=== PATIENT | female | born 1945 | race Caucasian/White ===

== ENCOUNTER 2024-06-12 13:57 | Emergency (ER) | payer SELFPAY ==
[2024-06-12] VITALS (10 sets, daily range): BP systolic 125–151; BP diastolic 81–105; PULSE 52–72; BMI 28.4
[2024-06-12 14:18] LABS: % Basophils 0.4 % (0-2); % Eosinophils 0.4 % (0-6); % Immature Granulocytes 0.6 % (0-0.5); % Lymphocytes 19.6 % (20.5-51.1); Absolute Immature Granulocytes 0.1 10^3/uL (0-0.05); Absolute Lymphocytes 1.5 10^3/uL (1.2-3.4); Absolute Monocytes 0.7 10^3/uL (0.1-0.6); Absolute Neutrophils 5.4 10^3/uL (1.4-6.5); Hematocrit 41.1 % (37.0-47.0); Mean Corp Hgb Conc. 34.1 g/dL (33.0-37.0); Mean Corpuscular Volume 93.8 fL (81.0-99.0); Mean Platelet Volume 9.7 fL (7.4-10.4); Nucleated Red Blood Cells % 0 %; Platelet Count 189 10^3/uL (130-400); Red Blood Cell Count 4.38 10^6/uL (4.20-5.40); Red Cell Dist. Width 14.5 % (11.5-14.5); White Blood Cell Count 7.8 10^3/uL (4.8-10.8)
[2024-06-12 14:47] LABS: Troponin I < 0.012 ng/ml
[2024-06-12 14:49] LABS: ALT (SGPT) 44 U/L (0-35); AST (SGOT) 32 U/L (14-36); Albumin 4.3 g/dl (3.5-5.0); Alkaline Phosphatase 87 U/L (38-126); Blood Urea Nitrogen 32 mg/dl (7-17); Calcium 9.6 mg/dl (8.4-10.2); Carbon Dioxide 28 mmol/L (22-30); Chloride 101 mmol/L (98-107); Estimated Creatinine Clearance 52 ml/min; Glucose 229 mg/dl (70-99); Potassium 4.3 mmol/L (3.5-5.1); Sodium 140 mmol/L (135-145); Total Bilirubin 0.7 mg/dl (0.2-1.3); Total Protein 6.6 g/dl (6.3-8.2); eGFR > 60.00
--- NOTE | 2024-06-12 15:20 | ED.GENMED ---
History of Present Illness
<Tiarra Ortez PA-C - Last Filed: 06/13/24 17:49>
General
Chief Complaint: Chest Pain
Source: patient
Exam Limitations: dementia
Time Seen by Provider: 06/12/24 14:27
Nursing documentation reviewed up to this point in time: agreed with
History of Present Illness
History of Present Illness:
Patient is a 78-year-old female with history of CHF, hypertension, hyperlipidemia, diabetes, Alzheimer's presenting to the emergency department following episode of chest pain this morning. Patient is a poor historian due to Alzheimer's. She does
state that this morning while she was walking around her house she had an episode of left-sided chest pain lasting a few minutes (although she does note memory regarding this episode is vague). Her family was concerned that she was having heart
attack prompting her visit to the emergency department.
At this time�patient denies any chest pain, shortness of breath. She does report mild lightheadedness. Patient denies any back pain, headache, abdominal lower extremity weakness or numbness/tingling.
Did speak to patients son who reports no history of CAD.
Review of Systems
<Tiarra Ortez PA-C - Last Filed: 06/13/24 17:49>
Review of Systems
Allergies reviewed?: Yes
All Other Systems: ROS reviewed and negative except as documented in HPI and ROS
Phy Exam
<Tiarra Ortez PA-C - Last Filed: 06/13/24 17:49>
Physical Exam
Physical Exam:
Vitals: Mildly hypertensive. Otherwise vital signs stable. Afebrile
General: Patient is well appearing, no acute distress
Skin: Warm and dry, no rashes or lesions
Head: Normocephalic, atraumatic
Eyes: Sclera nonicteric. EOMs intact. No nystagmus.
Throat: Protecting airway
Neck: Normal ROM, no cervical spine tenderness, no meningismus. No JVD
Cardiac: Regular rate and rhythm, no murmurs. No reproducible anterior chest wall tenderness.
Pulm: Normal respiratory effort, no wheezes, rales, rhonchi heard on exam.
Abdomen: Abdomen soft. No abdominal tenderness.
Extremities: No evidence of cyanosis or edema. Palpable and equal distal pulses bilateral upper and lower extremities
Neuro: AAOx3. No focal neurologic deficits.
Psychiatric: Normal affect.
Scores
<Tiarra Ortez PA-C - Last Filed: 06/13/24 17:49>
Heart Score for Chest Pain Patients
STEMI patient?: No
History: Slightly or Non-Suspicious
ECG: Nonspecific Repolarization
Age: >/= 65 years
Risk Factors: >/= 3 Risk Factors or History of CAD
Troponin: </= Normal Limit
Heart Score for Chest Pain Patients: 5
Heart Score Risk: 20.3% MACE over next 6 weeks
Course
<Tiarra Ortez PA-C - Last Filed: 06/13/24 17:49>
Orders/Labs/Results
Orders:
Orders
06/12/24 14:03
Electrocardiogram (*1) Urgent
Reason for Study: Chest Pain
EKG- Treatment ONCE
CXR2 [CR Chest - 2 Views ] Urgent
Comment:
Reason For Exam: chest pain
06/12/24 14:09
Complete Blood Count/With Diff Urgent
Comprehensive Metabolic Panel Urgent
Troponin I Urgent
06/12/24 15:20
Orthostatic VS- Treatment ONCE
pacemaker [Interrogate Pacemaker- Treatment] ONCE
06/12/24 17:10
Electrocardiogram (*1) Urgent
Reason for Study: Chest Pain
EKG- Treatment ONCE
06/12/24 17:11
Troponin I Urgent
Abnormal Lab Results
06/12/24
14:09
MCH 32.0 H pg
(27.0-31.0)
Abs Immat Gran (auto) 0.1 H 10^3/uL
(0-0.05)
Absolute Monos (auto) 0.7 H 10^3/uL
(0.1-0.6)
Immature Gran % 0.6 H %
(0-0.5)
Lymphocytes % 19.6 L %
(20.5-51.1)
BUN 32 H mg/dl
(7-17)
Glucose 229 H mg/dl
(70-99)
ALT 44 H U/L
(0-35)
06/12/24 14:09
06/12/24 14:09
Vital Signs
Initial and Last Documented VS:
Initial Vital Signs
Temp Pulse Resp BP Pulse Ox
98.7 F 63 18 139/84 98
06/12/24 14:01 06/12/24 14:01 06/12/24 14:01 06/12/24 14:01 06/12/24 14:01
Last Documented Vital Signs
Temp Pulse Resp BP Pulse Ox
98.7 F 66 15 131/81 99
06/12/24 14:01 06/12/24 18:30 06/12/24 18:30 06/12/24 18:00 06/12/24 16:30
<Romain Maravilla MD - Last Filed: 06/12/24 16:08>
Orders/Labs/Results
Orders:
Orders
06/12/24 14:03
Electrocardiogram (*1) Urgent
Reason for Study: Chest Pain
EKG- Treatment ONCE
CXR2 [CR Chest - 2 Views ] Urgent
Comment:
Reason For Exam: chest pain
06/12/24 14:09
Complete Blood Count/With Diff Urgent
Comprehensive Metabolic Panel Urgent
Troponin I Urgent
06/12/24 15:20
Orthostatic VS- Treatment ONCE
pacemaker [Interrogate Pacemaker- Treatment] ONCE
06/12/24 17:10
Electrocardiogram (*1) Urgent
Reason for Study: Chest Pain
EKG- Treatment ONCE
06/12/24 17:11
Troponin I Urgent
Abnormal Lab Results
06/12/24
14:09
MCH 32.0 H pg
(27.0-31.0)
Abs Immat Gran (auto) 0.1 H 10^3/uL
(0-0.05)
Absolute Monos (auto) 0.7 H 10^3/uL
(0.1-0.6)
Immature Gran % 0.6 H %
(0-0.5)
Lymphocytes % 19.6 L %
(20.5-51.1)
BUN 32 H mg/dl
(7-17)
Glucose 229 H mg/dl
(70-99)
ALT 44 H U/L
(0-35)
06/12/24 14:09
06/12/24 14:09
Vital Signs
Initial and Last Documented VS:
Initial Vital Signs
Temp Pulse Resp BP Pulse Ox
98.7 F 63 18 139/84 98
06/12/24 14:01 06/12/24 14:01 06/12/24 14:01 06/12/24 14:01 06/12/24 14:01
Last Documented Vital Signs
Temp Pulse Resp BP Pulse Ox
98.7 F 66 15 131/81 99
06/12/24 14:01 06/12/24 18:30 06/12/24 18:30 06/12/24 18:00 06/12/24 16:30
<Tiarra Ortez PA-C - Last Filed: 06/13/24 17:49>
MDM/Problems Addressed
Differential Diagnosis Includes:
Not limited to: Muscular strain, pericarditis, myocarditis, GERD, pneumonia, pneumothorax, ACS
MDM/Problems Addressed:
78-year-old female with history as documented presenting following episode of chest pain this morning. Patient asymptomatic at this time. History somewhat limited due to patient's Alzheimer's. Vital stable. Exam as above. Patient
well-appearing, no apparent distress. Mild reproducible left-sided chest wall tenderness. Palpable and equal distal pulses. Differential somewhat broad�although given unclear history and risk factors will obtain labs, troponin. Will check chest
x-ray. Initial EKG with a paced rhythm. Will interrogate pacemaker. Differentials include muscular strain, GERD, pneumonia, ACS, etc.
Update: Labs reviewed. No clinically significant abnormalities. Initial troponin undetectable. Chest x-ray report reviewed�tortuosity of descending thoracic already noted, no evidence of mediastinum widening. Patient remains asymptomatic
Chronic conditions affecting care:
CHF, hypertension, hyperlipidemia, Alzheimer's, diabetes
Acute Exacerbation and/or Progression of Chronic Illness:
Acute hyperglycemia, acutely hypertensive
<Tiarra Ortez PA-C - Last Filed: 06/13/24 17:49>
*Radiology
Radiology exam reviewed: preliminary read by ED provider and radiology read reviewed
*Pulse Oximetry
Patient hypoxic: no
*EKG
Interpreted by ED Provider?: Yes
EKG Intrepretation Date: 06/12/24
Interpretation: abnormal
Comparison EKG: no comparison EKG present
Heart Rate: 60
Rate: normal
Rhythm: other
*Area Representative Interpretation
Rate: normal
Interpretation: normal
Heart Rate: 62
*Critical Care Note
Total Time (30-74mins, 75-104mins- exclusive of procedures): Not Applicable
<Tiarra Ortez PA-C - Last Filed: 06/13/24 17:49>
Update Note
Update Note:
Update: Repeat troponin negative. Patient remains asymptomatic. Low suspicion for ACS or acute emergent cardiac process. Did obtain pacemaker interrogation report which shows no evidence of arrhythmia. Given patients age and risk factors - will
provide cardiology referral for close outpatient follow-up. Return precautions discussed. Did call and speak with patients son to review findings. Patient and patients son comfortable with plan.
ED Attending Note
<Tiarra Ortez PA-C - Last Filed: 06/13/24 17:49>
-
Portions of this chart may have been created with voice recognition software.� Occasional wrong word or��sound alike� substitutions may have occurred due to the inherent limitations of voice recognition software.
<Romain Maravilla MD - Last Filed: 06/12/24 16:08>
ED Attending Note
Patient seen and examined by attending physician: Yes
I performed the substantive portion of visit, reviewed & personally made and approve the management plan that is documented in note by myself or MARQUIS.: Yes
ED Attending Note:
Patient is a 78-year-old with history of dementia, hypertension, hyperlipidemia, CHF, pacemaker presenting to the emergency department chest pain. Patient is extremely poor historian given her dementia and is unable to recall exactly what happened.
She states that she had chest pain this morning. She does state that she was walking around her house when it was a pressure-like sensation. She is unsure how long it lasted or what time it occurred. She does state that sometimes she gets pain
when she is walking. No shortness of breath nausea vomiting. She does believe she seen a precision machining instructor but does not remember when. PA did obtain additional history from son who denies any coronary artery disease or stents. Currently patient
denies any complaints.
GENERAL: in no acute distress
HEENT: normocephalic, extraocular movements intact, moist oral mucosa
NECK: normal inspection
RESPIRATORY: no respiratory distress, clear to auscultation bilaterally
CARDIOVASCULAR: regular rate and rhythm, reproducible left-sided chest wall tenderness
ABDOMEN/: soft, non-distended, non-tender to palpation, no rebound or guarding
EXTREMITIES: non-tender, no edema/swelling
NEUROLOGIC: awake and alert, moves all extremities
SKIN: warm
Patient is a 78-year-old woman with history of dementia, CHF, hypertension, hyperlipidemia presenting to the emergency department with chest pain. Vitals unremarkable and exam does show mild left-sided chest wall tenderness. Unclear history but
patient does have risk as she does states she occasionally gets exertional chest pain. Will obtain blood work including troponin as well as a delta troponin. EKG does show paced rhythm. Will interrogate pacemaker. Chest x-ray per my
interpretation does show tortuous aorta but no signs of widened mediastinum. If delta troponin is unremarkable anticipate discharge with cardiology hotline follow-up given patient's age and risk factors.
Discharge Plan
Departure
Patient Disposition: Home (Routine Discharge)
Date of Disposition: 06/12/24
Time of Disposition: 18:10
Patient with high blood pressure during this ER visit?: Yes
Condition: Good
Covid-19: Not Applicable
Discharge Problem:
Chest pain
Instructions: Chest pain, Chest Pain DCA Follow Up, BLOOD PRESSURE
Referrals:
Ilsa Hernández MD [Family Provider] -
Lele Stroud DO [Active] - Follow up in 1 week
Activity Restrictions/Additional Instructions:
RETURN TO THE EMERGENCY DEPARTMENT WITH ANY CHEST PAIN, SHORTNESS OF BREATH, DIZZINESS/LIGHTHEADEDNESS, SEVERE BACK/ABDOMINAL PAIN, WORSENING IN CURRENT SYMPTOMS, OR ANY OTHER CONCERNS
-It is important to stay well-hydrated. You should take it easy over the next few days until you are followed up by cardiology.
-Follow-up with cardiology for further evaluation/management. The information has been provided for you above.
Monitor your symptoms closely and return to the emergency department with any acute worsening/new symptoms
Interventions
Interventions:
*Risk Screen - Suicide Last Done: 06/12/24 14:01
*General Assessment Last Done: 06/12/24 14:01
*Neglect/Abuse Screening Last Done: 06/12/24 14:01
ED- Fall Risk Assessment Last Done: 06/12/24 14:01
*ED COVID-19 Vaccine History Last Done: 06/12/24 14:01
*Nursing Disposition Last Done: 06/12/24 18:48
ED- Cardiac Assessment Last Done: 06/12/24 14:01
Discharge Date and Time
Discharge Date/Time: 06/12/24 18:49
Print Language: CYMRO
[2024-06-12 17:42] LABS: Troponin I < 0.012 ng/ml
== END 2024-06-12 18:49 | disposition home or self-care (01) ==
LOC: EMR 13:57
PROVIDERS: Emergency Medicine; Physician Assistant; EMERGENCY PHYSICIAN Student in an Organized Health Care Education/Training Program; FAMILY PHYSICIAN Internal Medicine Geriatric Medicine
DX: R07.89 Other chest pain (principal); R42 Dizziness and giddiness; I11.0 Hypertensive heart disease with heart failure; I50.9 Heart failure, unspecified; E78.5 Hyperlipidemia, unspecified; E11.9 Type 2 diabetes mellitus without complications; F02.80 Dementia in other diseases classified elsewhere, unspecified severity, without behavioral disturbance, psychotic disturbance, mood disturbance, and anxiety; G30.9 Alzheimer's disease, unspecified; Z95.0 Presence of cardiac pacemaker; Z79.84 Long term (current) use of oral hypoglycemic drugs; Z88.2 Allergy status to sulfonamides
CPT/HCPCS: 99285; 93288; 71046; 80053; 84484; 85025; 93005

== ENCOUNTER 2024-11-11 12:06 | Emergency (ER) | payer MEDICARE, OTHER, SELFPAY ==
[2024-11-11 12:09] VITALS: BP 116/61; BMI 27.6
[2024-11-11 12:12] VITALS: BP 116/61
[2024-11-11 12:31] LABS: % Basophils 0.4 % (0-2); % Eosinophils 0.3 % (0-6); % Immature Granulocytes 0.9 % (0-0.5); % Lymphocytes 13.4 % (20.5-51.1); % Monocytes 10.2 % (1.7-9.3); % Neutrophils 74.8 % (42.2-75.2); Absolute Basophils 0.1 10^3/uL (0-0.2); Absolute Immature Granulocytes 0.1 10^3/uL (0-0.05); Absolute Lymphocytes 1.6 10^3/uL (1.2-3.4); Absolute Monocytes 1.2 10^3/uL (0.1-0.6); Absolute Neutrophils 8.6 10^3/uL (1.4-6.5); Hematocrit 41.7 % (37.0-47.0); Mean Corpuscular Hgb 32.8 pg (27.0-31.0); Mean Corpuscular Volume 91.2 fL (81.0-99.0); Mean Platelet Volume 10.1 fL (7.4-10.4); Nucleated Red Blood Cells % 0 %; Platelet Count 169 10^3/uL (130-400); Red Blood Cell Count 4.57 10^6/uL (4.20-5.40); Red Cell Dist. Width 13.6 % (11.5-14.5); White Blood Cell Count 11.5 10^3/uL (4.8-10.8)
[2024-11-11 12:56] LABS: Troponin I 0.019 ng/ml
[2024-11-11 13:00] VITALS: BP 97/71
[2024-11-11 13:14] LABS: Blood Urea Nitrogen 30 mg/dl (7-17); Calcium 9.4 mg/dl (8.4-10.2); Carbon Dioxide 25 mmol/L (22-30); Chloride 102 mmol/L (98-107); Estimated Creatinine Clearance 52 ml/min; Glucose 276 mg/dl (70-99); Sodium 134 mmol/L (135-145); eGFR > 60.00
--- NOTE | 2024-11-11 14:15 | ED.GENMED ---
History of Present Illness
General
Chief Complaint: Chest Pain
Source: patient, family and ambulance crew
Time Seen by Provider: 11/11/24 13:43
History of Present Illness
History of Present Illness:
79-year-old female with past medical history of Alzheimer's dementia, atrial fibrillation status post pacemaker placement, CHF, hypertension, hyperlipidemia, [id number] diabetes presenting to the emergency department for evaluation of
reported chest discomfort earlier today, patient noting at time of my exam her pain is resolved. Due to her dementia patient is unable to provide much further history about when her chest pain started, what she was doing at the time of the onset of
pain, descriptors about what the pain felt like or location. Son who entered the room during my exam states patient has a [employer] pacemaker, unsure as to who the patient's learning and development assistant is. Patient has been otherwise in her usual state of health
prior to today's symptoms starting. No reported fevers or recent illnesses. Patient currently denying any abdominal pain, chest pain, shortness of breath, palpitations, lower extremity pain or edema. Based off record review patient was seen here
in this emergency department for similar a few months ago with an unremarkable workup.
Past History
Past History
ED Past Medical History: Arrthythmia, CHF, HTN, Hypercholesterolemia, NIDDM and Renal failure
ED Past Surgical History: Cardiac, Cholecystectomy and Other
Social History
Tobacco: Non-smoker
Alcohol: None
Drug: None
Personal:
Living: assisted living
Review of Systems
Review of Systems
All Other Systems: ROS reviewed and negative except as documented in HPI and ROS
Phy Exam
Physical Exam
Physical Exam:
GENERAL: Alert , in no apparent distress
EYE: clear conjunctiva b/l
HEAD: NCAT
ENT: mmm.
CARDIAC: Regular rate and rhythm, systolic murmur left sternal border.
LUNGS: Clear breath sounds bilaterally, no acute respiratory distress, no wheezes/rales/rhonchi
ABDOMEN: Soft, without focal tenderness, no r/g, no cvat
NEUROLOGICAL: Alert and oriented
SKIN: Warm and dry, skin intact.
MUSCULOSKELETAL: well perfused. Trace ankle edema, nonpitting
PSYCH: Normal and appropriate interaction.
Scores
Heart Failure Risk
Heart Failure Risk Score: Not Applicable
Heart Score for Chest Pain Patients
STEMI patient?: No
History: Moderately Suspicious
ECG: Normal
Age: >/= 65 years
Risk Factors: 1 or 2 Risk Factors
Troponin: </= Normal Limit
Heart Score for Chest Pain Patients: 4
Heart Score Risk: 20.3% MACE over next 6 weeks
Withdrawal Assessment of Alcohol
Withdrawal Assessment Completed?: Not applicable
Course
Orders/Labs/Results
Orders:
Orders
11/11/24 12:09
Electrocardiogram (*1) Urgent
Reason for Study: Chest Pain
EKG- Treatment ONCE
11/11/24 12:24
Basic Metabolic Panel Urgent
Complete Blood Count/With Diff Urgent
Troponin I Urgent
11/11/24 13:43
Interrogate Pacemaker- Treatment ONCE
11/11/24 13:52
CR Chest - 2 Views Urgent
Comment:
Reason For Exam: chest pain
11/11/24 16:05
Electrocardiogram (*1) Urgent
Reason for Study: Chest Pain
EKG- Treatment ONCE
11/11/24 16:48
Troponin I Urgent
11/11/24 17:29
Acetaminophen [Tylenol] 1,000 mg PO NOW STA
Abnormal Lab Results
11/11/24
12:24
WBC 11.5 H 10^3/uL
(4.8-10.8)
MCH 32.8 H pg
(27.0-31.0)
Abs Immat Gran (auto) 0.1 H 10^3/uL
(0-0.05)
Absolute Neuts (auto) 8.6 H 10^3/uL
(1.4-6.5)
Absolute Monos (auto) 1.2 H 10^3/uL
(0.1-0.6)
Immature Gran % 0.9 H %
(0-0.5)
Lymphocytes % 13.4 L %
(20.5-51.1)
Monocytes % 10.2 H %
(1.7-9.3)
Sodium 134 L mmol/L
(135-145)
BUN 30 H mg/dl
(7-17)
Glucose 276 H mg/dl
(70-99)
11/11/24 12:24
11/11/24 12:24
Vital Signs
Initial and Last Documented VS:
Initial Vital Signs
Temp Pulse Resp BP Pulse Ox
99.0 F 64 18 116/61 93
11/11/24 12:09 11/11/24 12:09 11/11/24 12:09 11/11/24 12:09 11/11/24 12:09
Last Documented Vital Signs
Temp Pulse Resp BP Pulse Ox
99.0 F 84 18 139/86 97
11/11/24 12:09 11/11/24 17:16 11/11/24 17:16 11/11/24 17:00 11/11/24 17:16
Mon[place] Mason consulted with Physician
[place] Mason consulted with physician?: Yes
Name of Physician Consulted: Steve
MDM/Problems Addressed
Differential Diagnosis Includes:
Arrhythmia, ACS, PE, pneumothorax, pleurisy, GI upset, muscular etiology
MDM/Problems Addressed:
79-year-old female presenting to the ER for evaluation of transient chest pain, history very limited. Currently chest pain-free. Worked up here few months ago for the same without any emergent pathologies found. Triage vital signs noted, at time
of my exam patient's pulse ox continuously around 97% on room air and patient is in no acute perri distress. Labs initiated with patient having a nonnegative troponin but within normal limits. Will repeat a troponin. Will interrogate pacemaker.
Disposition pending.
Chronic conditions affecting care: Arrhythmia and Other (CHF)
*Radiology
Radiology exam reviewed: radiology read reviewed
*Pulse Oximetry
Patient hypoxic: no
*EKG
Heart Rate: 89
Rate: normal
Rhythm: PVC's and av sequential
*Industrial Maintenance Instructor Interpretation
Rate: normal
Rhythm: av sequential
*Critical Care Note
Total Time (30-74mins, 75-104mins- exclusive of procedures): Not Applicable
Data Reviewed
Review of Other/Old Records Reveals: Labs and Records
Patient Management
Discussion with other providers: Merchandise Carrier
Escalation/DeEscalation of care consider admission/obs:
Patient's pacemaker interrogation did show 1 episode of nonsustained ventricular tachycardia that lasted approximately 1 second around 10:30 AM and some episodes of atrial tachycardia as well. She follows with learning and development assistant Dr. Sh[facility] son and saw all this learning and development assistant earlier in the week which was reportedly an uneventful visit. I contacted the cardiology group and spoke to Dr. Cortez and reviewed patient's workup and plan for repeat troponin as well as
the pacemaker interrogation report. We will increase patient's metoprolol from 25 mg once daily to 25 mg twice daily. Awaiting repeat troponin and as long as this remains within normal limits plan will be to disposition patient back home and
outpatient follow-up with them in the next 1 to 2 weeks. Patient's son who is currently in the ER with the patient is okay and agreeable with this treatment plan.
Patient's repeat troponin is down to 0.018. She remains chest pain-free. She did note some jaw discomfort and is requesting some Tylenol. Given her 2 negative troponins combined with no EKG changes I do not suspect patient needs admission for
further cardiac workup and at this time is safe for discharge home with increased metoprolol dosing and outpatient follow-up with her learning and development assistant. Patient's son feels comfortable transporting the patient back home to [place]. Aware of
return precautions to the ER.
ED Attending Note
-
Portions of this chart may have been created with voice recognition software.� Occasional wrong word or��sound alike� substitutions may have occurred due to the inherent limitations of voice recognition software.
Discharge Plan
Departure
Patient Disposition: Home (Routine Discharge)
Date of Disposition: 11/11/24
Time of Disposition: 17:25
Patient with high blood pressure during this ER visit?: No
Discharge Problem:
Chest pain
Instructions: Chest Pain NON-DHP Hand Sign Writer Follow Up
Prescriptions:
New
metoprolol succinate 25 mg tablet extended release 24 hr
25 mg PO BID Qty: 60 0RF
Referrals:
Ilsa Hernández MD [Family Provider] -
Interventions
Interventions:
*Risk Screen - Suicide Last Done: 11/11/24 12:09
*General Assessment Last Done: 11/11/24 12:09
*Neglect/Abuse Screening Last Done: 11/11/24 12:09
*ED- Fall Risk Assessment Last Done: 11/11/24 12:09
*ED COVID-19 Vaccine History Last Done: 11/11/24 12:09
ED- Cardiac Assessment Last Done: 11/11/24 12:09
Discharge Date and Time
Print Language: FINNISH
[2024-11-11 15:09] VITALS: BP 128/97
[2024-11-11 16:05] VITALS: BP 133/80
[2024-11-11 17:00] VITALS: BP 139/86
[2024-11-11 17:24] LABS: Troponin I 0.018 ng/ml
[2024-11-11] MEDS: TYLENOL 1000 MG PO (17:35)
== END 2024-11-11 17:58 | disposition home or self-care (01) ==
LOC: EMR 12:06
PROVIDERS: EMERGENCY PHYSICIAN Student in an Organized Health Care Education/Training Program; FAMILY PHYSICIAN Internal Medicine Geriatric Medicine
DX: R07.89 Other chest pain (principal); E11.9 Type 2 diabetes mellitus without complications; E78.00 Pure hypercholesterolemia, unspecified; F02.80 Dementia in other diseases classified elsewhere, unspecified severity, without behavioral disturbance, psychotic disturbance, mood disturbance, and anxiety; G30.9 Alzheimer's disease, unspecified; I11.0 Hypertensive heart disease with heart failure; I50.9 Heart failure, unspecified; I48.91 Unspecified atrial fibrillation; Z95.0 Presence of cardiac pacemaker; Z90.49 Acquired absence of other specified parts of digestive tract
CPT/HCPCS: 99284; 71046; 80048; 84484; 85025; 93005